=== PATIENT | female | born 1980 | race Caucasian/White ===

== ENCOUNTER 2017-09-04 11:15 | Inpatient (IN) | payer BC, OTHER ==
[2017-09-04 11:54] VITALS: BMI 34.3
[2017-09-04 12:55] LABS: BASO % 0.3 % (0-2.0); EOS % 0.5 % (0-4.5); HEMATOCRIT 37.8 % (32.4-45.2); HEMOGLOBIN 12.8 GM/dL (10.7-15.3); MCH 29.8 pg (25.7-33.7); MCHC 33.8 g/dl (32.0-36.0); MEAN CELL VOLUME 88.3 fl (80-96); MEAN PLT VOLUME 11.2 fl (7.5-11.1); MONO % 7.3 % (3.8-10.2); NEUT % 74.9 % (42.8-82.8); PLATELET COUNT 170 K/MM3 (134-434); RBC 4.29 M/mm3 (3.60-5.2); RDW 15.4 % (11.6-15.6); WHITE BLOOD COUNT 8.4 K/mm3 (4.0-10.0)
[2017-09-04 13:09] LABS: ANION GAP 7 (8-16); BLOOD UREA NITROGEN 12 mg/dL (7-18); CHLORIDE 104 mmol/L (98-107); CO2 25 mmol/L (21-32); CREATININE 0.6 mg/dL (0.55-1.02); GLUCOSE,RANDOM 75 mg/dL (74-106); SODIUM 136 mmol/L (136-145)
[2017-09-04 13:14] LABS: INR 0.88 (0.82-1.09)
[2017-09-04 13:17] LABS: ACTIVATED PTT 25.5 SECONDS (25.2-36.5)
[2017-09-04] MEDS ORDERED: OXYTOCIN 30 UNITS in 0.9% NS 30 UNIT/500 ML INFUS.BAG IVPB ONE (13:32)
[2017-09-04] MEDS ORDERED: PROMETHAZINE HCL 25 MG/1 ML VIAL IVPUSH ONE (13:36)
--- NOTE | 2017-09-04 13:41 | HP ---
Past Medical History - Admission Chief Complaint: Here for labor induction History of Present Illness: 37 y/o female here with SIUP at 39 weeks, for induction of labor. complicated by +flu during , sickle cell trait and AMA. Pt feels well today, having some cramping. h/o X 2. - Past Medical History Cardiovascular: No: HTN Pulmonary: No: Asthma Gastrointestinal: No: Inflamatory Bowel Disease Reproductive: No: Fibroids, PID ...: 7 ...Para: 2 ...Term: 2 ...: 0 ...Spon : 4 ...Induced : 0 ...Multiple Gestation: 0 ...LMP: 12/01/16 ... Weeks Gestation by Dates: 39.4 ...EDC by Dates: 09/07/17 ...EDC by Sono: 09/11/17 Heme/Onc: Yes: Sickle Cell Trait Infectious Disease: No: HIV, MRSA, STD's Psych: No: Anxiety, Bipolar, Depression - Past Surgical History Past Surgical History: Yes: None Hx Myomectomy: No Hx Transabdominal Cerclage: No - Smoking History Smoking history: Never smoked Have you smoked in the past 12 months: No - Alcohol/Substance Use Hx Alcohol Use: No - Social History Usual Living Arrangement: Yes: With Spouse ADL: Independent History of Recent Travel: No Home Medications - Allergies Allergies/Adverse Reactions: Allergies Allergy/AdvReac Type Severity Reaction Status Date / Time No Known Allergies Allergy Verified 09/04/17 11:38 - Home Medications Home Medications: Ambulatory Orders Vit/Iron Fum/Folic AC [ Tablet] 1 tab PO DAILY 03/17/14 Review of Systems - Review of Systems Constitutional: reports: No Symptoms Eyes: reports: No Symptoms HENT: reports: No Symptoms Neck: reports: No Symptoms Cardiovascular: reports: No Symptoms Respiratory: reports: No Symptoms Gastrointestinal: reports: No Symptoms Genitourinary: reports: Other (cramping). denies: Vaginal Bleeding Endocrine: reports: No Symptoms Hematology/Lymphatic: reports: No Symptoms Psychiatric: reports: No Symptoms Physical Exam - Maternity Vital Signs: Vital Signs Temperature 98.2 F 09/04/17 13:00 Pulse Rate 75 09/04/17 13:00 Respiratory Rate 18 09/04/17 13:00 Blood Pressure 121/80 09/04/17 13:00 O2 Sat by Pulse Oximetry (%) Constitutional: Yes: Well Nourished, No Distress Eyes: Yes: Conjunctiva Clear HENT: Yes: WNL Neck: Yes: WNL Breast(s): Yes: WNL - Abdominal Exam/OB Fundal Height: 39 Number of Fetuses: Single Presentation: Vertex Contractions: Yes Regularity: Irregular Intensity: Mild Monitor Mode: External Heart Rate (range): 135 Heart Rate Location: Midline Category: I Accelerations: Uniform Decelerations: None - Vaginal Exam/OB Dilatation (cm): 3 Effacement (%): 0 Amniotic Membrane Status: Intact Presentation: Vertex/Position Station: -2 - Physical Exam Psychiatric: Yes: Alert, Oriented - Labs Lab Results: CBC, BMP 09/04/17 12:33 09/04/17 12:33 Hemorrhage Risk Assessment - Risk Factors Medium Risk Factors: Yes: None High Risk Factors: Yes: None Risk Score: 1 Risk Level: Medium Risk Problem List - Problems (1) Multiparity Code(s): Z64.1 - PROBLEMS RELATED TO MULTIPARITY (2) Advanced maternal age (AMA) in Code(s): UDM4063 - Assessment/Plan 37 y/o with SIUP at 39 weeks, IOL FHTS cat 1 for pitocin GBS negative
[2017-09-04] MEDS ORDERED: BUTORPHANOL TARTRATE 1 MG/ML VIAL IVPB PRN (13:45)
[2017-09-04] MEDS ORDERED: OXYTOCIN 30 UNITS in 0.9% NS 30 UNIT/500 ML INFUS.BAG IVPB SCH (14:00)
[2017-09-04] MEDS ORDERED: TUBERCULIN PPD 5 TU/0.1ML SYRINGE (IN PATIENT USE ONLY) ID ONE (14:00)
[2017-09-04] MEDS: ELECTROLYTE-148 SOLN 1,000 ML IV SCH ×2 (14:10→22:10)
[2017-09-05] MEDS ORDERED: BUTORPHANOL TARTRATE 1 MG/ML VIAL ONE ×2 (05:28)
[2017-09-05] MEDS ORDERED: PROMETHAZINE HCL 25 MG/1 ML VIAL ONE (05:29)
[2017-09-05] MEDS ORDERED: FENTANYL/BUPIVACAINE/NS/PF - PCEA - 50 ML DISP.SYRIN EP ONE (09:32)
[2017-09-05] MEDS ORDERED: NALOXONE HCL 0.4 MG/ML VIAL IVPUSH PRN (09:40)
[2017-09-05] MEDS ORDERED: FENTANYL/BUPIVACAINE/NS/PF - PCEA - 50 ML DISP.SYRIN EP SCH (09:45)
--- NOTE | 2017-09-05 10:34 | PN ---
Ante-Partal Exam - Subjective Subjective: Late entry from 9am Pt had some pain overnight, recieved IV pain meds, feels ok now (pitocin turned off for intermittent late decelerations earlier in the morning) Vital Signs: Vital Signs Temperature 98.6 F 09/05/17 09:00 Pulse Rate 79 09/05/17 09:00 Respiratory Rate 18 09/05/17 09:00 Blood Pressure 119/77 09/05/17 09:00 O2 Sat by Pulse Oximetry (%) Bleeding: No Headache: No Visual changes: No Right upper quadrant pain: No - Contractions Contractions: Yes Regularity: Irregular Intensity: Unaware Monitor Mode: External (145) - Exam during Labor Variability: Moderate Category: I Monitor Accelerations: Present Monitor Decelerations: None Exam: Vaginal Dilatation (cm): 5 Effacement (%): 70 Amniotic Membrane Status: Bulging Station: -3 Remarks: AROM for clear fluid at this exam - Assessment/Plan Assessment/Plan: 37 y/o with SIUP at 39 weeks, IOL FHTS cat 1 AROM for clear fluid restart pitocin epidural prn
[2017-09-05] MEDS: PRENATAL VITAMINS W/ FOLIC ACID TABLET (FP) PO SCH (12:25)
[2017-09-05] MEDS: ELECTROLYTE-148 SOLN 1,000 ML IV SCH (14:05)
[2017-09-05] MEDS ORDERED: OXYTOCIN 20 UNITS in 0.9% NS 20 UNIT/1,000 ML INFUS.BAG IV ONE (14:52)
--- NOTE | 2017-09-05 16:20 | PN ---
Delivery - Delivery Vaginal Delivery: No Problems Type of Anesthesia: Epidural Episiotomy/Laceration: None EBL (cc): 250 Delivery, Single - Stages of Labor Date of Delivery: 09/05/17 Date Placenta Delivered: 09/05/17 Placenta: Yes: Spontaneous - Condition of Stator Tester/Truck Engine Technician Present: No Infant Gender: Male Position: Right, OA - 1 Minute Total Score: 9 5 Minutes Total Score: 9 - Feeding Plan Initial Plan: Elected not to breastfeed exclusively throughout hospitalization Remarks - Remarks Remarks: Uncomplicated of baby across intact perineum from LUCAS position anterior shoulder (left) delivered with ease along with remainder of cord clamped and cut mouth and nose bulb suctioned after delivery placenta delivered with 3VC an in tact no laceration repair sponge count correct mom stable baby to well baby nursery
[2017-09-05] MEDS ORDERED: WITCH HAZEL 50% (TUCKS) 40 PAD/JAR PAD TP PRN (16:28)
[2017-09-05] MEDS ORDERED: METHYLERGONOVINE MALEATE 0.2 MG/1 ML AMP IM PRN (16:28)
[2017-09-05] MEDS ORDERED: BISACODYL 10 MG SUPP.RECT RC PRN (16:28)
[2017-09-05] MEDS ORDERED: BENZOCAINE 20% 57 GM BOTTLE TP PRN (16:28)
[2017-09-05] MEDS ORDERED: BENZOCAINE 28 GM HEMORRHOIDAL OINTMENT TP PRN (16:28)
[2017-09-05] MEDS ORDERED: OXYTOCIN 20 UNITS in 0.9% NS 20 UNIT/1,000 ML INFUS.BAG IV SCH (16:30)
[2017-09-05] MEDS: ACETAMINOPHEN 325 MG TABLET (FP) PO PRN ×2 (16:30→21:11)
[2017-09-05] MEDS: IBUPROFEN 600 MG TABLET (FP) PO PRN ×2 (16:30→21:12)
[2017-09-05] MEDS ORDERED: IBUPROFEN 600 MG TABLET (FP) PO ONE (16:31)
[2017-09-05] MEDS ORDERED: ACETAMINOPHEN 325 MG TABLET (FP) ONE (16:32)
[2017-09-06] MEDS: IBUPROFEN 600 MG TABLET (FP) PO PRN ×2 (01:30→13:49)
[2017-09-06] MEDS: ACETAMINOPHEN 325 MG TABLET (FP) PO PRN ×2 (01:30→13:47)
[2017-09-06 08:29] LABS: BASO % 0.2 % (0-2.0); EOS % 0.5 % (0-4.5); HEMOGLOBIN 11.4 GM/dL (10.7-15.3); LYMPH % 14.5 % (8-40); MCHC 33.6 g/dl (32.0-36.0); MEAN CELL VOLUME 89.4 fl (80-96); MEAN PLT VOLUME 10.8 fl (7.5-11.1); MONO % 7.3 % (3.8-10.2); NEUT % 77.5 % (42.8-82.8); PLATELET COUNT 140 K/MM3 (134-434); RDW 15.7 % (11.6-15.6); WHITE BLOOD COUNT 13.2 K/mm3 (4.0-10.0)
[2017-09-06] MEDS: PRENATAL VITAMINS W/ FOLIC ACID TABLET (FP) PO SCH (10:21)
--- NOTE | 2017-09-06 13:05 | PN ---
Post Progress Note - Subjective Subjective: Pt seen and evaluated, doing well. Denies pain. VB minimal. Ambulating, voiding, tolerating regular diet. No complaints. Type of Delivery: Vital Signs: Vital Signs Temperature 98.6 F 09/06/17 09:00 Pulse Rate 86 09/06/17 09:00 Respiratory Rate 20 09/06/17 09:00 Blood Pressure 119/69 09/06/17 09:00 O2 Sat by Pulse Oximetry (%) 100 09/05/17 17:00 Uterus: Yes: Fundus Firm, Fundus @ umbilicus Abdomen/GI: Yes: Abdomen soft, Passing flatus, Tolerating PO. No: Tender Lochia: Yes: Rubra Lochia, amount: Small Extremities: Yes: Calves non-tender. No: Edema Perineum: Yes: Intact Activity: Ambulating - Labs Labs: CBC WBC 13.2 K/mm3 (4.0-10.0) H D 09/06/17 07:40 RBC 3.80 M/mm3 (3.60-5.2) 09/06/17 07:40 Hgb 11.4 GM/dL (10.7-15.3) D 09/06/17 07:40 Hct 34.0 % (32.4-45.2) 09/06/17 07:40 MCV 89.4 fl (80-96) 09/06/17 07:40 MCH 30.0 pg (25.7-33.7) 09/06/17 07:40 MCHC 33.6 g/dl (32.0-36.0) 09/06/17 07:40 RDW 15.7 % (11.6-15.6) H 09/06/17 07:40 Plt Count 140 K/MM3 (134-434) 09/06/17 07:40 MPV 10.8 fl (7.5-11.1) 09/06/17 07:40 Absolute Neuts (auto) 10.2 # 09/06/17 07:40 Neutrophils % 77.5 % (42.8-82.8) 09/06/17 07:40 Lymphocytes % 14.5 % (8-40) 09/06/17 07:40 Monocytes % 7.3 % (3.8-10.2) 09/06/17 07:40 Eosinophils % 0.5 % (0-4.5) 09/06/17 07:40 Basophils % 0.2 % (0-2.0) 09/06/17 07:40 Nucleated RBC % 0 % (0-0) 09/06/17 07:40 Problem List - Problems (1) Multiparity Code(s): Z64.1 - PROBLEMS RELATED TO MULTIPARITY (2) Advanced maternal age (AMA) in Code(s): PCL8718 - (3) Status post vaginal delivery Code(s): FYM8813 - Assessment/Plan 37 y/o PPD#1 s/p normal AFVSS HGb 11.4 Regular diet PO pain meds routine post care
[2017-09-06] MEDS ORDERED: SENNOSIDES/DOCUSATE COMBO (SENNA PLUS) TABLET (UD) PO PRN (22:00)
[2017-09-07 07:38] VITALS: BP 127/69; PULSE 74; TEMP 98.4
--- NOTE | 2017-09-07 08:44 | DS ---
Physical Exam-PHOTO STYLIST Vital Signs: Vital Signs Temperature 98.4 F 09/07/17 07:36 Pulse Rate 74 09/07/17 07:36 Respiratory Rate 20 09/07/17 07:36 Blood Pressure 127/69 09/07/17 07:36 O2 Sat by Pulse Oximetry (%) 100 09/05/17 17:00 Labs: CBC, BMP 09/06/17 07:40 09/04/17 12:33 Delivery - Delivery Vaginal Delivery: No Problems Type of Anesthesia: Epidural Episiotomy/Laceration: None EBL (cc): 250 Delivery, Single - Stages of Labor Date 1st Stage Initiatied: 09/05/17 Time 1st Stage Initiated: 05:30 Date 2nd Stage Initiated: 09/05/17 Time 2nd Stage Initiated: 14:35 Date of Delivery: 09/05/17 Time of Delivery: 16:07 Time Placenta Delivered: 16:14 Placenta: Yes: Spontaneous - Condition of Picture Enlarger/Color Buffer Present: No Infant Gender: Male Weight: 8 lb 7 oz Position: Right, OA Total Hours ROM (Hrs/Mins): 6h 50m - 1 Minute Total Score: 9 5 Minutes Total Score: 9 - [place] Feeding Plan Initial Plan: Elected not to breastfeed exclusively throughout hospitalization Discharge Summary Reason For Visit: INDUCTION OF LABOR Current Active Problems Advanced maternal age (AMA) in (Acute) Multiparity (Acute) Condition: Good - Instructions Diet, Activity, Other Instructions: Physical activity Resume your normal everyday activity as tolerated no heavy lifting or exercise until seen by your surgeon. You may walk unlimited velia of and climb stairs. You may resume driving the car when you feel safe and comfortable behind the wheel. No sexual activity as instructed. Wound care If you have a bandage, leave it on, and keep dry for 48-72 hours. After that time discard the outer bandage. If they are tapes on the skin under the out of bandage leave them in place. They will peel off in the next 7 to 10 days. Do Not Peel them off. You may shower the day after surgery. If there are tapes present on the skin, you may shower over them. Diet There are no dietary restrictions. Eat healthy, high-fiber foods. Drink 6 to 8 glasses of liquid each day. This will assist in keeping your bowels are regular. Pain management You may take Tylenol or acetaminophen or Ibuprofen (for example, Motrin, Advil etc.) from my pain prescription medication is ordered should be taken as prescribed for moderate to severe pain. Call MD for any of the following: Severe pain not relieved by medication Fever of 101 or higher Excessive bleeding or drainage on dressing Inability to urinate Referrals: Juana Mathew MD [Staff Physician] - Disposition: HOME - Home Medications Comprehensive Discharge Medication List: Ambulatory Orders Vit/Iron Fum/Folic AC [ Tablet] 1 tab PO DAILY 03/17/14
[2017-09-07] MEDS: PRENATAL VITAMINS W/ FOLIC ACID TABLET (FP) PO SCH (09:39)
[2017-09-07] MEDS: IBUPROFEN 600 MG TABLET (FP) PO PRN (09:39)
[2017-09-07] MEDS: ACETAMINOPHEN 325 MG TABLET (FP) PO PRN (09:40)
== END 2017-09-07 13:00 | disposition home or self-care (01) | DRG 775 ==
LOC: JLDR 11:15 → J3W 09-05 17:44
PROVIDERS: ADMIT Obstetrics & Gynecology; ATTEND Obstetrics & Gynecology
PROC: 10E0XZZ Delivery of Products of Conception, External Approach (ICD-10-PCS; principal; 2017-09-05)
DX: O99.02 Anemia complicating childbirth (principal); D57.3 Sickle-cell trait; O76 Abnormality in fetal heart rate and rhythm complicating labor and delivery; Z3A.39 39 weeks gestation of pregnancy; Z37.0 Single live birth
CPT/HCPCS: 36415; 59409; 80048; 85025; 85610; 85730; 86593; 86850; 86900; 86901

== ENCOUNTER 2017-10-16 04:45 | Day surgery (SDC) | payer BC, OTHER ==
[2017-10-12 14:24] VITALS: BMI 29.2
[2017-10-16] MEDS ORDERED: ROCURONIUM BROMIDE 50 MG/5 ML VIAL ONE (13:17)
[2017-10-16] MEDS ORDERED: fentaNYL CITRATE 250 MCG/5 ML VIAL ONE (13:17)
[2017-10-16] MEDS ORDERED: PROPOFOL 20 ML ONE (13:17)
[2017-10-16] MEDS ORDERED: LIDOCAINE HCL/PF 2% SDV 5ML VIAL ONE (13:17)
[2017-10-16] MEDS ORDERED: MIDAZOLAM HCL 2 MG/2 ML SINGLE DOSE VIAL ONE (13:17)
[2017-10-16] MEDS ORDERED: DEXAMETHASONE SOD PHOSPHATE 4 MG/1 ML VIAL ONE (13:17)
[2017-10-16] MEDS ORDERED: ONDANSETRON 4 MG/2 ML VIAL IVPUSH PRN (13:26)
[2017-10-16] MEDS ORDERED: LACTATED RINGERS SOLUTION 1,000 ML IV SCH (13:30)
[2017-10-16] MEDS ORDERED: BUPIVACAINE HCL/PF 0.5% (5MG/ML) 10 ML VIAL ONE (14:09)
[2017-10-16] MEDS ORDERED: ACETAMINOPHEN 325 MG TABLET (FP) PO PRN (14:18)
[2017-10-16] MEDS ORDERED: IBUPROFEN 800 MG/8 ML IJ IVPB PRN (14:18)
--- NOTE | 2017-10-16 14:18 | HP ---
History & Physical Update - History History: No Change - Physical Physical: No Change (for voluntary sterilization - agree with H&P from 10/12/17) - Assessment Assessment: No Change - Plan Plan: No Change
[2017-10-16] MEDS ORDERED: BUPIVACAINE HCL/PF 0.5% (5MG/ML) 10 ML VIAL IJ ONE ×2 (15:01→15:12)
[2017-10-16] MEDS ORDERED: NEOSTIGMINE METHYLSULFATE 0.5 MG/ML - 10 ML MDV ONE (15:08)
[2017-10-16] MEDS ORDERED: GLYCOPYRROLATE 0.2 MG/1 ML VIAL ONE (15:08)
--- NOTE | 2017-10-16 15:24 | OP ---
Operative Note - Note: Operative Date: 10/16/17 (01309) Pre-Operative Diagnosis: voluntary sterilization, multiparity Operation: laparoscopic bilateral salpingectomy Findings: normal left ovary non visualized right ovary Post-Operative Diagnosis: Same as Pre-op Surgeon: Nora Monsivais Superintendent Stevedoring: Nir Duncan Anesthesia: General Specimens Removed: bilateral fallopian tubes Estimated Blood Loss (mls): 5 Operative Report Dictated: Yes
[2017-10-16 17:22] VITALS: TEMP 97.8
[2017-10-16] MEDS ORDERED: IBUPROFEN 600 MG TABLET (FP) PO ONE (17:52)
[2017-10-16 18:50] VITALS: BP 126/86; PULSE 66
--- NOTE | 2017-10-16 20:11 | OP ---
DATE OF OPERATION: 10/16/2017 PREOPERATIVE DIAGNOSIS: Multiparity and desire for permanent sterilization. POSTOPERATIVE DIAGNOSIS: Multiparity and desire for permanent sterilization. PROCEDURE: Laparoscopic bilateral salpingectomy. SURGEON: Nora Monsivais DO TIRE MAKER: Nir Duncan PA-C ANESTHESIA: General. COMPLICATIONS: None. DISPOSITION: Stable to PACU. COUNTS: Sponge, needle, and instrument count correct. SPECIMENS REMOVED: Bilateral fallopian tubes. ESTIMATED BLOOD LOSS: 5 mL BRIEF HISTORY AND PROCEDURE: Patient is a 37-year-old female who is 6 weeks post and came to the office expressing desire for permanent sterilization, for which she had been expressing the desire throughout the duration of her most-recent . The patient was counseled on her options, and she elected to undergo a laparoscopic bilateral salpingectomy. The patient signed consents for the procedure in the office, and she was admitted to [facility] on October 16, 2017. Consents were re-confirmed. The patient was then taken back to the operating room and given general anesthesia without difficulty. She was prepped and draped in the usual sterile fashion. In the dorsal supine position, a Morales catheter was placed under sterile conditions, and a hard timeout was performed. A 5-mm skin incision was created in the umbilicus, and a Veress needle was placed intra-abdominally. After the hanging drop test, the CO2 gas was attached, and the abdomen was insufflated with CO2 gas. A 5-mm trocar was placed in the umbilicus, and a camera was then inserted. After confirmation of intra-abdominal placement, 2 bilateral lower quadrant, 5-mm trocars were placed under direct visualization. The left fallopian tube was identified and traced to its fimbriated end. It was elevated and dissected off its attachments to the ovary as well as to the mesosalpinx and the uterus. Excellent hemostasis was achieved after the removal. The right fallopian tube was noted to be adhered to the right adnexa. However, it was identified, and the fimbriated end was noted and elevated. It was dissected off its attachment to the mesosalpinx as far as was visually feasible. However, it attachment to the uterus as well as to the ovary were not clear. So, the portion of fallopian tube that was visible was removed at this time. The right ovary was not visualized. Both fallopian tubes were removed from the trocars intact and sent to Pathology for permanent evaluation. Bilateral surgical sites were examined and noted to be hemostatic. The left ovary was noted to be within normal limits. Again, the right ovary was not visualized. The abdomen was then desufflated. The trocars were removed. The skin was reapproximated using 4-0 Biosyn in subcuticular fashion, and Dermabond skin glue was applied. Morales catheter was removed. The patient was awoken from anesthesia and recovering in stable condition in the PACU at the time of this dictation. NORA MONSIVAIS DO /[id number]
--- NOTE | 2017-10-18 13:33 | PATH ---
Surgical Pathology Report Patient Name: ALVAREZ OSEI Med. Rec. #: [id number] /Age/Gender: 1980 (Age: 37) / F Account: [id number] Location: [facility] SURGICAL Taken: 10/16/2017 Received: 10/17/2017 Reported: 10/18/2017 Physicians: Nora Monsivais M.D. Specimen(s) Received BILATERAL FALLOPIAN TUBES Clinical History Sterilization Final Diagnosis FALLOPIAN TUBES, BILATERAL, SALPINGECTOMY: UNREMARKABLE FALLOPIAN TUBES INCLUDING FIMBRIATED END AND FULL LUMINAL PORTION (2). Electronically Signed Jacqueline Ritter M.D. Gross Description Received in formalin labeled "bilateral fallopian tubes" are 2 undesignated 5 cm in length fimbriated fallopian tubes. The fallopian tubes are arbitrarily designated as A and B. Sectioning reveals an unremarkable lumen. [employer] sections are submitted in 2 cassettes as follows: 1-2 (fallopian tube A, 1-fimbria), 3-4 (fallopian tube B, 3-fimbria). MLSZ/10/17/2017 sanml/10/17/2017
== END 2017-10-16 19:00 | disposition home or self-care (01) ==
LOC: JASU-SURG 04:45
PROVIDERS: ATTEND Obstetrics & Gynecology
PROC: 0U574ZZ Destruction of Bilateral Fallopian Tubes, Percutaneous Endoscopic Approach (ICD-10-PCS; principal; 2017-10-16 14:30)
DX: Z30.2 Encounter for sterilization (principal)
CPT/HCPCS: 84703; 88302-TC; 94760